=== PATIENT | female | born 1935 | race Caucasian/White ===

== ENCOUNTER 2017-02-13 13:50 | Outpatient (CLI) | payer MEDICARE, OTHER ==
[~2017-02-13 13:50] MED LIST: ACET-868 PO; CALC0.253 PO; CYCL30DR EACHEYE; DOXY100C2 PO; DYMISTA; FLUT1DIS INH; FURO80TA85 PO; METO-357 PO
[2017-02-13] MEDS ORDERED: CELLULOSE,OXIDIZED 1 PKT EACH MC ONE (15:30)
== END 2017-02-13 23:59 | disposition home health service (06) ==
LOC: WOU 13:50
PROVIDERS: ATTEND Surgery
DX: S31.100A Unspecified open wound of abdominal wall, right upper quadrant without penetration into peritoneal cavity, initial encounter (principal); X58.XXXA Exposure to other specified factors, initial encounter; Y93.9 Activity, unspecified; Y92.89 Other specified places as the place of occurrence of the external cause; Y99.8 Other external cause status; Z93.2 Ileostomy status; Z90.49 Acquired absence of other specified parts of digestive tract; E66.9 Obesity, unspecified; Z68.37 Body mass index [BMI] 37.0-37.9, adult; F03.91 Unspecified dementia, unspecified severity, with behavioral disturbance; Z99.3 Dependence on wheelchair; Z87.19 Personal history of other diseases of the digestive system
CPT/HCPCS: 11042; A6209 ×2; A6402 ×2